=== PATIENT | female | born 1990 | race American Indian/Alaskan Native ===

== ENCOUNTER 2020-03-19 14:02 | Emergency (ER) | payer SELFPAY ==
[2020-03-19 14:21] VITALS: BP 105/60
[2020-03-19 14:52] LABS: HCG Qualitative,Urine Positive (Negative)
[2020-03-19 14:55] LABS: Bilirubin,Urine NEG (Negative); Blood,Urine NEG (Negative); Color,Urine Yellow (Yellow); Protein,Urine <15 mg/dL mg/dL (Negative); Urobilinogen,Urine < 2.0 mg/dL (<2.0); WBC,Urine < 1.0 /HPF (0.0-6.0)
--- NOTE | 2020-03-19 16:57 | Emergency Department Report ---
ED Abdominal Pain HPI - General Chief Complaint: Abdominal Pain Stated Complaint: STOMACH PAINS Time Seen by Provider: 03/19/20 15:55 Source: patient Mode of arrival: Ambulatory Limitations: No Limitations - History of Present Illness Initial Comments: This is a 29-year-old -[place] female who presents to the emergency room with abdominal pain for 2 weeks. No past medical history. Patient reports a history of irregular menstrual cycle and can't remember her last menses. She is A0. Patient states she continue to feel sick daily. She denies nausea, vomiting, vaginal bleeding, vaginal discharge, urinary frequency, urgency, dysuria, chest pain, or dizziness. MD Complaint: abdominal pain Onset/Timin -: week(s) Location: diffuse Radiation: none Migration to: no migration Severity: moderate Severity scale (0 -10): 7 Quality: cramping Consistency: intermittent Improves With: nothing Worsens With: nothing Associated Symptoms: denies other symptoms - Related Data LMP (females 10-50): unknown Previous Rx's Medication Instructions Recorded Last Taken Type 21/Iron Fu/Folic Acid 1 each PO DAILY #30 tablet 03/19/20 Unknown Rx [ Complete Caplet] Allergies Allergy/AdvReac Type Severity Reaction Status Date / Time sulfamethoxazole Allergy Swelling Verified 03/19/20 14:13 [From Bactrim] trimethoprim [From Bactrim] Allergy Swelling Verified 03/19/20 14:13 ED Review of Systems ROS: Stated complaint: STOMACH PAINS Other details as noted in HPI Constitutional: denies: chills, fever Respiratory: denies: cough, shortness of breath, wheezing Cardiovascular: denies: chest pain, palpitations Gastrointestinal: abdominal pain. denies: nausea, diarrhea Musculoskeletal: denies: back pain, joint swelling, arthralgia Skin: denies: rash, lesions Neurological: denies: headache, weakness, paresthesias Psychiatric: denies: anxiety, depression ED Past Medical Hx - Past Medical History Previous Medical History?: No - Surgical History Past Surgical History?: No - Social History Smoking Status: Never Smoker Substance Use Type: None - Medications Home Medications: Home Medications Medication Instructions Recorded Confirmed Last Taken Type 21/Iron Fu/Folic Acid 1 each PO DAILY #30 tablet 03/19/20 Unknown Rx [ Complete Caplet] ED Physical Exam - General Limitations: No Limitations General appearance: alert, in no apparent distress - Respiratory Respiratory exam: Present: normal lung sounds bilaterally. Absent: respiratory distress - Cardiovascular Cardiovascular Exam: Present: regular rate, normal rhythm. Absent: systolic murmur, diastolic murmur, rubs, gallop - GI/Abdominal GI/Abdominal exam: Present: soft, tenderness (LLQ), normal bowel sounds. Absent: distended, guarding, rebound, rigid, organomegaly - Extremities Exam Extremities exam: Present: normal inspection - Back Exam Back exam: Absent: CVA tenderness (R), CVA tenderness (L) - Neurological Exam Neurological exam: Present: alert, oriented X3, normal gait - Psychiatric Psychiatric exam: Present: normal affect, normal mood - Skin Skin exam: Present: warm, dry, intact, normal color. Absent: rash ED Course Vital Signs 03/19/20 14:19 Temperature 98.1 F Pulse Rate 93 H Respiratory 18 Rate Blood Pressure 105/60 [Left] O2 Sat by Pulse 100 Oximetry ED Medical Decision Making - Lab Data Lab Results 03/19/20 03/19/20 Range/Units 14:20 16:19 HCG, Quant [id number] H (0-4) mIU/mL Urine Color Yellow (Yellow) Urine Turbidity Clear (Clear) Urine pH 7.0 (5.0-7.0) Ur Specific [place] 1.010 (1.003-1.030) Urine Protein <15 mg/dl (Negative) mg/dL Urine Glucose (UA) Neg (Negative) mg/dL Urine Ketones Neg (Negative) mg/dL Urine Blood Neg (Negative) Urine Nitrite Neg (Negative) Urine Bilirubin Neg (Negative) Urine Urobilinogen < 2.0 (<2.0) mg/dL Ur Leukocyte Esterase Neg (Negative) Urine WBC (Auto) < 1.0 (0.0-6.0) /HPF Urine RBC (Auto) 2.0 (0.0-6.0) /HPF U Epithel Cells (Auto) 2.0 (0-13.0) /HPF Urine HCG, Qual Positive A (Negative) - Radiology Data Radiology results: report reviewed US OB <= 14 weeks fetus INDICATION / CLINICAL INFORMATION: pelvic pain, confirmed . COMPARISON: None available. FINDINGS: Single, viable intrauterine . heart rate 169. Armour-rump length measures 3.2 cm, corresponding to a gestational age of 10 weeks 1 day. 2.7 cm complex cyst in the right ovary. 2.3 cm rounded, echogenic mass in the left ovary. No free fluid. IMPRESSION: 1. Single, 10 week 1 day viable intrauterine . 2. Bilateral ovarian masses, possibly complex cysts. - Medical Decision Making 29-year-old female presents to the emergency room with diffuse abdominal pain for 2 weeks. No past medical history. Left lower quadrant tenderness on exam. Work-up: Urinalysis, urine test, and OB ultrasound. Urine test positive, hCG quant [id number], urinalysis unremarkable. OB ultrasound findings of single, 10 week 1 day viable intrauterine . Bilateral ovarian masses, possibly complex cysts. Start vitamins. Referral to [facility] for continued care. Patient discharged home stable with strict return instructions. Critical care attestation.: If time is entered above; I have spent that time in minutes in the direct care of this critically ill patient, excluding procedure time. ED Disposition Clinical Impression: Abdominal pain affecting , Threatened , confirmed by positive blood test Disposition: TO HOME OR SELFCARE Is pt being admited?: No Condition: Stable Instructions: Abdominal Pain (ED), Threatened Miscarriage (ED) Additional Instructions: Start taking vitamins daily. Follow-up with an [facility] from the list provided below. Return to the emergency room if you experience worsening abdominal pain, vaginal bleeding, or back pain. Prescriptions: 21/Iron Fu/Folic Acid [ Complete Caplet] 1 each PO DAILY #30 tablet Referrals: [facility] [Provider Group] - 3-5 Days [facility] [Provider Group] - 3-5 Days [facility] [Provider Group] - 3-5 Days Time of Disposition: 18:25
--- NOTE | 2020-03-19 18:15 | Ultrasound Report ---
US OB <= 14 weeks fetus INDICATION / CLINICAL INFORMATION: pelvic pain, confirmed . COMPARISON: None available. FINDINGS: Single, viable intrauterine . heart rate 169. [place]-rump length measures 3.2 cm, corresponding to a gestational age of 10 weeks 1 day. 2.7 cm complex cyst in the right ovary. 2.3 cm rounded, echogenic mass in the left ovary. No free flu id. IMPRESSION: 1. Single, 10 week 1 day viable intrauterine . 2. Bilateral ovarian masses, possibly complex cysts. Signer Name: Merritt Mohr MD Signed: 03/19/2020 6:11 PM Workstation Name: [id number]
== END 2020-03-19 18:45 | disposition home or self-care (01) ==
LOC: ED 14:02
DX: O20.0 Threatened abortion (principal); Z3A.10 10 weeks gestation of pregnancy; Z88.2 Allergy status to sulfonamides
CPT/HCPCS: 36415; 76801; 81001; 81025; 84702

== ENCOUNTER 2020-08-04 10:22 | Emergency (ER) | payer MEDICAID ==
[2020-08-04 11:41] LABS: HCG Qualitative,Urine Positive (Negative)
[2020-08-04 11:57] LABS: Bacteria,Urine 1+ /HPF (Negative); Bilirubin,Urine NEG (Negative); Blood,Urine NEG (Negative); Color,Urine Amber (Yellow); Mucus,Urine FEW /HPF; Urobilinogen,Urine < 2.0 mg/dL (<2.0)
[2020-08-04] MEDS ORDERED: SODIUM CHLORIDE 0.9% 1000 ML 1,000 ML IV ONE ×2 (12:12→14:56)
--- NOTE | 2020-08-04 12:19 | Emergency Department Report ---
ED General Adult HPI - General Chief complaint: Fever Stated complaint: 10WKS PREG, FEVER Time Seen by Provider: 08/04/20 11:04 Source: patient Mode of arrival: Ambulatory Limitations: No Limitations - History of Present Illness Initial comments: 29-year-old -[place] Citizen female patient without significant past medical history presents with complaints of ongoing fever x3 days. Patient states she is 10 weeks and is currently following with [facility]. She states her temp is typically around 103.5, however it has been controlled with Tylenol and returns about every 4-5 hours. She denies any cough, shortness of breath, chest pain, nausea/vomiting/diarrhea, abdominal pain, throat pain, ear pain, urinary symptoms, or vaginal bleeding. She states she does have a decreased appetite, however she is tolerating food liquids. Patient also denies any other known sick contacts, however states she works at the [employer] and has be en around many people. Severity scale (0 -10): 0 - Related Data Previous Rx's Medication Instructions Recorded Last Taken Type 21/Iron Fu/Folic Acid 1 each PO DAILY #30 tablet 03/19/20 Unknown Rx [ Complete Caplet] Loratadine [Claritin] 10 mg PO QDAY #3 tablet 08/04/20 Unknown Rx Nitrofurantoin Piatt/M-Cryst 100 mg PO Q12HR 7 Days #14 capsule 08/04/20 Unknown Rx [Macrobid CAP] Allergies Allergy/AdvReac Type Severity Reaction Status Date / Time amoxicillin Allergy Anaphylaxis Verified 08/04/20 17:58 azithromycin Allergy Hives Verified 08/04/20 17:58 ceftriaxone [From Rocephin] Allergy Hives Verified 08/04/20 17:58 diphenhydramine Allergy Hives Verified 08/04/20 17:58 [From Benadryl] Sulfa (Sulfonamide Allergy Anaphylaxis Verified 08/04/20 17:58 Antibiotics) sulfamethoxazole Allergy Swelling Verified 03/19/20 14:13 [From Bactrim] trimethoprim [From Bactrim] Allergy Swelling Verified 03/19/20 14:13 ED Review of Systems ROS: Stated complaint: 10WKS PREG, FEVER Other details as noted in HPI Constitutional: chills, malaise. denies: diaphoresis, fever, weakness ENT: denies: throat pain Respiratory: denies: cough, orthopnea, shortness of breath Cardiovascular: denies: chest pain, edema, syncope Endocrine: denies: excessive sweating, increased thirst Gastrointestinal: denies: abdominal pain, nausea, vomiting, diarrhea, constipation Genitourinary: denies: urgency, dysuria, frequency, hematuria, discharge, abnormal menses, dyspareunia Musculoskeletal: denies: back pain, joint swelling, arthralgia Neurological: denies: headache, weakness, numbness, paresthesias Hematological/Lymphatic: denies: easy bruising, swollen glands ED Past Medical Hx - Past Medical History Previous Medical History?: No - Surgical History Past Surgical History?: No - Social History Smoking Status: Never Smoker - Medications Home Medications: Home Medications Medication Instructions Recorded Confirmed Last Taken Type 21/Iron Fu/Folic Acid 1 each PO DAILY #30 tablet 03/19/20 Unknown Rx [ Complete Caplet] Loratadine [Claritin] 10 mg PO QDAY #3 tablet 08/04/20 Unknown Rx Nitrofurantoin Piatt/M-Cryst 100 mg PO Q12HR 7 Days #14 capsule 08/04/20 Unknown Rx [Macrobid CAP] ED Physical Exam - General Limitations: No Limitations General appearance: alert, in no apparent distress - Head Head exam: Present: atraumatic, normocephalic - Eye Eye exam: Present: normal appearance. Absent: scleral icterus - Neck Neck exam: Present: normal inspection, full ROM. Absent: tenderness, lymphadenopathy - Respiratory Respiratory exam: Present: normal lung sounds bilaterally. Absent: respiratory distress, wheezes, rales, rhonchi, stridor - Cardiovascular Cardiovascular Exam: Present: normal rhythm, tachycardia. Absent: systolic murmur, diastolic murmur, rubs, gallop - GI/Abdominal GI/Abdominal exam: Present: soft, normal bowel sounds. Absent: distended, tenderness, guarding, rebound, rigid - Extremities Exam Extremities exam: Present: normal inspection, other (No swelling or edema noted to the lower legs bilaterally). Absent: calf tenderness - Back Exam Back exam: Present: full ROM. Absent: CVA tenderness (R), CVA tenderness (L) - Neurological Exam Neurological exam: Present: alert, oriented X3, normal gait - Psychiatric Psychiatric exam: Present: normal affect, normal mood - Skin Skin exam: Present: warm, dry, intact, normal color. Absent: rash, cyanosis, diaphoretic, erythema, petechiae, pallor, ecchymosis ED Course Vital Signs 08/04/20 08/04/20 08/04/20 10:56 14:30 16:56 Temperature 98.3 F 98.7 F Pulse Rate 131 H 105 H 106 H Respiratory 18 18 16 Rate Blood Pressure 100/57 94/51 100/43 [Left] O2 Sat by Pulse 98 99 100 Oximetry 08/04/20 18:20 Temperature Pulse Rate Respiratory Rate Blood Pressure 125/82 [Left] O2 Sat by Pulse Oximetry ED Medical Decision Making - Lab Data Result diagrams: 08/04/20 12:31 08/04/20 12:31 Lab Results 08/04/20 08/04/20 08/04/20 Range/Units 11:33 12:31 12:31 WBC 3.9 L (4.5-11.0) K/mm3 RBC 3.72 (3.65-5.03) M/mm3 Hgb 10.9 (10.1-14.3) gm/dl Hct 31.7 (30.3-42.9) % MCV 85 (79-97) fl MCH 29 (28-32) pg MCHC 34 (30-34) % RDW 14.3 (13.2-15.2) % Plt Count 36 L (140-440) K/mm3 Lymph % (Auto) 14.9 (13.4-35.0) % Piatt % (Auto) 2.4 (0.0-7.3) % Eos % (Auto) 1.5 (0.0-4.3) % Baso % (Auto) 0.3 (0.0-1.8) % Lymph # 0.6 L (1.2-5.4) K/mm3 Piatt # 0.1 (0.0-0.8) K/mm3 Eos # 0.1 (0.0-0.4) K/mm3 Baso # 0.0 (0.0-0.1) K/mm3 Seg Neutrophils % 80.9 H (40.0-70.0) % Seg Neutrophils # 3.1 (1.8-7.7) K/mm3 Sodium 129 L (137-145) mmol/L Potassium 4.2 (3.6-5.0) mmol/L Chloride 97.0 L (98-107) mmol/L Carbon Dioxide 19 L (22-30) mmol/L Anion Gap 17 mmol/L BUN 7 (7-17) mg/dL Creatinine 0.7 (0.6-1.2) mg/dL Estimated GFR > 60 ml/min BUN/Creatinine Ratio 10 % Glucose 88 (65-100) mg/dL Calcium 8.7 (8.4-10.2) mg/dL Total Bilirubin 0.20 (0.1-1.2) mg/dL AST 30 (5-40) units/L ALT 14 (7-56) units/L Alkaline Phosphatase 50 (35-129) units/L Total Protein 9.2 H (6.3-8.2) g/dL Albumin 3.3 L (3.9-5) g/dL Albumin/Globulin Ratio 0.6 % Urine Color [place] (Yellow) Urine Turbidity Slightly-cloudy (Clear) Urine pH 5.0 (5.0-7.0) Ur Specific [place] 1.033 H (1.003-1.030) Urine Protein 30 mg/dl (Negative) mg/dL Urine Glucose (UA) Neg (Negative) mg/dL Urine Ketones Tr (Negative) mg/dL Urine Blood Neg (Negative) Urine Nitrite Neg (Negative) Ur Reducing Substances Not Reportable Urine Bilirubin Neg (Negative) Urine Ictotest Not Reportable Urine Urobilinogen < 2.0 (<2.0) mg/dL Ur Leukocyte Esterase Sm (Negative) Urine WBC (Auto) 15.0 H (0.0-6.0) /HPF Urine RBC (Auto) 5.0 (0.0-6.0) /HPF U Epithel Cells (Auto) 28.0 H (0-13.0) /HPF Urine Bacteria (Auto) 1+ (Negative) /HPF Urine Mucus Few /HPF Urine HCG, Qual Positive A (Negative) - Medical Decision Making 29-year-old -[place] Citizen female patient without significant past medical history presents with complaints of ongoing fever x3 days. Patient states she is 10 weeks and is currently following with [facility]. She states her temp is typically around 103.5, however it has been controlled with Tylenol and returns about every 4-5 hours. She denies any cough, shortness of breath, chest pain, nausea/vomiting/diarrhea, abdominal pain, throat pain, ear pain, urinary symptoms, or vaginal bleeding. She states she does have a decreased appetite, however she is tolerating food liquids. Patient also denies any other known sick contacts, however states she works at the [employer] and has been around many people. Heart rate upon arrival noted to be a 131. Normal WBCs noted on CBC. UA shows 15 WBCs. CMP shows an anion gap = 20. Patient given 2 L saline bolus. Heart rate now 98. Will treat for complicated UTI given fever at home with Rocephin a nd DC home on Augmentin. Recommend follow-up with [facility] in 3 days. No fever has been observed during patient stay here today. Her vitals are now normal, she is well-appearing, and stable for discharge home. Strict return precautions were discussed in detail with patient who verbalizes understanding. At end of visit, patient realized that she has a allergy of hives to Rocephin. Patient was observed in the ED for about 3 to 4 hours after Rocephin was given, however no hives, shortness of breath, dysphasia, or other complaints were noted from patient. She also states anaphylactic reaction to penicillins. Given this, patient was given a dose of Decadron and discharged home with Claritin; patient states she is allergic to Benadryl also. Discussed signs and symptoms of allergic reaction and anaphylaxis in detail with patient who was instructed to return to the ED if she does experience any of these-patient verbalizes understanding. She is well-appearing and stable for discharge home. Augmentin switched to Macrobid. Critical care attestation.: If time is entered above; I have spent that time in minutes in the direct care of this critically ill patient, excluding procedure time. ED Disposition Clinical Impression: UTI in Qualifiers: Trimester: first trimester Qualified Code(s): O23.41 - Unspecified infection of urinary tract in , first trimester Disposition: DC-01 TO HOME OR SELFCARE Is pt being admited?: No Condition: Stable Instructions: Urinary Tract Infection in Women (ED), Anaphylaxis (ED) Additional Instructions: Please follow-up with your [facility] in 2 to 3 days. If you develop new or worsening symptoms seek immediate emergency treatment. Prescriptions: Loratadine [Claritin] 10 mg PO QDAY #3 tablet Nitrofurantoin Piatt/M-Cryst [Macrobid CAP] 100 mg PO Q12HR 7 Days #14 capsule Referrals: PRIMARY CARE, [Primary Care Provider] - 3-5 Days
[2020-08-04 13:25] LABS: Basophils % (Auto) 0.3 % (0.0-1.8); Eosinophils # (Auto) 0.1 K/mm3 (0.0-0.4); Eosinophils % (Auto) 1.5 % (0.0-4.3); Hematocrit 31.7 % (30.3-42.9); Hemoglobin 10.9 gm/dl (10.1-14.3); Lymphocytes # (Auto) 0.6 K/mm3 (1.2-5.4); Lymphocytes % (Auto) 14.9 % (13.4-35.0); Mean Corpuscular HGB Conc 34 % (30-34); Mean Corpuscular Volume 85 fl (79-97); Monocytes # (Auto) 0.1 K/mm3 (0.0-0.8); Monocytes % (Auto) 2.4 % (0.0-7.3); Red Blood Count 3.72 M/mm3 (3.65-5.03); Red Cell Distribution Width 14.3 % (13.2-15.2)
[2020-08-04 13:28] LABS: Platelet Count 36 K/mm3 (140-440)
[2020-08-04 13:43] LABS: Alanine Aminotransferase 14 units/L (7-56); Albumin 3.3 g/dL (3.9-5); Blood Urea Nitrogen 7 mg/dL (7-17); Calcium 8.7 mg/dL (8.4-10.2); Hemolysis Index 4
[2020-08-04 14:02] LABS: BUN/Creatinine Ratio 10
[2020-08-04] MEDS ORDERED: cefTRIAXone/NS 1 GM/50 ML 1 GM/50 ML BAG IV ONE (14:56)
[2020-08-04] MEDS ORDERED: dexAMETHasone 20 MG/5 ML VIAL IV ONE (18:05)
[2020-08-04 18:20] VITALS: BP 125/82
== END 2020-08-04 18:20 | disposition home or self-care (01) ==
LOC: ED 10:22
DX: O23.41 Unspecified infection of urinary tract in pregnancy, first trimester (principal); Z88.1 Allergy status to other antibiotic agents; Z88.6 Allergy status to analgesic agent
CPT/HCPCS: 36415; 80053; 81001; 81025; 85025; 87086; 96361; 96365; 96375; 99283; J0696; J1100; J7030